=== PATIENT | female | born 1990 | race Caucasian/White ===

== ENCOUNTER 2021-10-15 09:31 | Outpatient (CLI) | payer BC ==
[~2021-10-15] VITALS: Ht 165.1 cm; Wt 105.2 kg
[2021-10-15 09:46] VITALS: BP 109/65
[2021-10-15 09:51] VITALS: BP 109/65
--- NOTE | 2021-10-17 08:05 | Physician Query-Final Dx ---
Clinic Account Progress/Dx Physician Query: Please give diagnosis Please include # weeks gestation Date of Service October 15, 2021 at 09:31 ,JunOctober 17, 2021 08:05
== END 2021-10-15 10:05 | disposition home or self-care (01) ==
LOC: WSo 09:31 → LDRP 09:31 → WSo 10:05
PROVIDERS: ATTEND Family Medicine
DX: Z34.90 Encounter for supervision of normal pregnancy, unspecified, unspecified trimester (principal); Z3A.00 Weeks of gestation of pregnancy not specified
CPT/HCPCS: 99213